=== PATIENT | male | born 1945 | race Caucasian/White ===

== ENCOUNTER 2020-12-16 07:33 | Outpatient (CLI) | payer MEDICARE, SELFPAY ==
[2020-12-16 07:51] LABS: Basophils Absolute Auto 0.08 K/mm3 (0.00-0.10); Eosinophils Absolute Auto 0.09 K/mm3 (0.02-0.50); Eosinophils Percent Auto 1.2 % (1.0-6.0); Hematocrit 50.3 % (37.0-46.0); Hemoglobin 16.6 g/dL (12.4-15.3); Immature Granulocyte Absolute 0.04 K/mm3 (0.00-0.00); Immature Granulocyte Percent A 0.5 % (0.0-0.0); Lymphocytes Absolute Auto 2.58 K/mm3 (1.10-4.50); Lymphocytes Percent Auto 33.9 % (18.0-42.0); Mean Corpuscular Hemoglobin 31.8 pg (27.0-31.0); Mean Corpuscular Volume 96.4 fL (78.0-102.0); Mean Platelet Volume 11.1 fl (8.7-11.0); Monocytes Absolute Auto 0.93 K/mm3 (0.10-0.90); Monocytes Percent Auto 12.2 % (2.0-11.0); Neutrophils Absolute Auto 3.9 K/mm3 (1.7-7.2); Neutrophils Percent Auto 51.2 % (50.0-70.0); Platelet Count Result 207 K/mm3 (150-420); Red Blood Count 5.22 M/mm3 (4.70-6.10); Red Cell Distribution Width 13.5 % (11.6-14.4); White Blood Count 7.6 K/mm3 (4.8-10.8)
[2020-12-16 08:03] LABS: Add Urine Microscopic? NO; Appearance Urine Clear (Clear); Bilirubin Urine Negative (Negative); Blood Urine Negative (Negative); Color Urine Light Yellow (Yellow); Glucose Urine UA Negative (Negative); Ketones Urine Negative (Negative); Leukocyte Esterase Ur Negative (Negative); Nitrate Urine Negative (Negative); Protein Urine Negative (Negative); Urobilinogen Urine 0.2 mg/dL (0.2-1.0); pH Urine 5.5 (5.0-8.0)
[2020-12-16 08:27] LABS: Creatinine Urine 97.12 mg/dL (40-278); MALB Creatinine Ratio 13.3 mg/g (0-30); Microalbumin Urine Random < 13.0 mg/L
[2020-12-16 09:22] LABS: Alanine Aminotransferase 31 U/L (16-63); Albumin Level 3.5 g/dL (3.4-5.0); Alkaline Phosphatase 64 U/L (46-116); Anion Gap 7 mmol/L (8-16); Aspartate Amino Transferase 17 U/L (15-37); Bilirubin,Total 0.7 mg/dL (0.00-1.00); Blood Urea Nitrogen 13 mg/dL (7-18); Calcium 9.6 mg/dL (8.5-10.1); Carbon Dioxide 31 mmol/L (21-32); Chloride 103 mmol/L (98-108); Cholesterol 215 mg/dL (0-200); Creatine Kinase 92 U/L (39-308); Estimated Glomerular Filt Rate > 60; Folic Acid 7.5 ng/mL (8.6->20); Glucose 113 mg/dL (70-99); HDL Direct 40 mg/dL (40-60); LDL Cholesterol Calculated 96 mg/dL (<130); Osmolality Calculated 293 mOsm/kg (285-295); Potassium 4.3 mmol/L (3.5-5.1); Sodium 141 mmol/L (136-145); Thyroid Stimulating Hormone 2.13 uIU/mL (0.36-3.74); Total Protein 6.5 g/dL (6.4-8.2); Triglycerides 396 mg/dL (0-150); Vitamin B12 476 pg/mL (193-986)
[2020-12-19 08:52] LABS: Methylmalonic Acid 123 nmol/L (87-318)
[2020-12-19 13:22] LABS: RPR Screen Non-Reactive (Non-Reactive)
== END 2020-12-16 07:34 | disposition home or self-care (01) ==
LOC: CHSLAB 07:38
PROVIDERS: PCP Family Medicine; Visit Provider Family Medicine
DX: E78.2 Mixed hyperlipidemia (principal); I10 Essential (primary) hypertension; R41.3 Other amnesia
CPT/HCPCS: 36415; 80053; 80061; 81003; 82043; 82550; 82607; 82746; 83921; 84443; 85025; 86592

== ENCOUNTER 2020-12-20 08:47 | Outpatient (CLI) | payer MEDICARE, SELFPAY | END 2020-12-20 08:48 | disposition home or self-care (01) | PROVIDERS: PCP Family Medicine; Visit Provider Family Medicine | DX: R41.3 Other amnesia (principal) | CPT/HCPCS: 99199 ==